=== PATIENT | female | born 1970 | race Caucasian/White ===

== ENCOUNTER 2018-11-06 13:44 | Emergency (ER) | payer SELFPAY ==
[2018-11-06 14:27] VITALS: BP 117/66
[2018-11-06] MEDS ORDERED: DIPHENHYDRAMINE HCL 50 MG/ML VIAL IV ONE (15:04)
[2018-11-06] MEDS ORDERED: KETOROLAC TROMETHAMINE INJ/PF 30 MG/1 ML SDV IV ONE (15:04)
[2018-11-06] MEDS ORDERED: METOCLOPRAMIDE HCL INJ/PF 10 MG/2 ML SDV IV ONE (15:04)
[2018-11-06] MEDS ORDERED: NORMAL SALINE 1000 ML 1,000 ML IV ONE (15:04)
--- NOTE | 2018-11-06 15:07 | ER Document Report ---
ED General - General Chief Complaint: Headache Stated Complaint: HEADACHE Time Seen by Provider: 11/06/18 14:59 - HPI Notes: Patient is a 48-year-old female that presents to the emergency department for chief complaint of headache. Patient reports headache for the last 3 days. She describes it as a tightness extending from the back of her neck up over bilaterally to her forehead. She endorses photophobia and phonophobia. She also states she is having black and white or eyes. She does have a history of headaches in the past and states this feels similar. The headache was gradual in onset and has been worsening over the last few days. She took 2 Aleve once yesterday with no improvement of her symptoms. She has not taken any other medication at home for her pain. She states she has not been eating or drinking well because of the headache. She denies any fevers, chills, neck pain, numbness and weakness. Past Medical History: Headaches Past Surgical History: Tubal ligation, cholecystectomy Social History: Daily tobacco. Denies drugs and alcohol Family History: Reviewed and noncontributory for presenting illness Allergies: Reviewed, see documented allergy list. REVIEW OF SYSTEMS: CONSTITUTIONAL : No fever No chills No diaphoresis No recent illness EENT: No vision changes No congestion No sore throat CARDIOVASCULAR: No chest pain No palpitations RESPIRATORY: No shortness of breath No cough No difficulty breathing GASTROINTESTINAL: No abdominal pain No nausea No vomiting No diarrhea GENITOURINARY: No dysuria No hematuria No difficulty urinating MUSCULOSKELETAL: No back pain No leg pain No arm pain SKIN: No rashes No lesions LYMPHATIC: No swollen, enlarged glands. NEUROLOGICAL: No lightheadedness headache No weakness No paresthesias PSYCHIATRIC: No anxiety No depression PHYSICAL EXAMINATION: Vital signs reviewed, nursing noted reviewed. GENERAL: Well-appearing, well-nourished and in no acute distress. HEAD: Atraumatic, normocephalic. EYES: Eyes appear normal, extraocular movements intact, sclera anicteric, conjunctiva are normal. ENT: nares patent, oropharynx clear without exudates. Moist mucous membranes. NECK: Normal range of motion, supple without lymphadenopathy LUNGS: Breath sounds clear to auscultation bilaterally and equal. No wheezes rales or rhonchi. HEART: Regular rate and rhythm without murmurs ABDOMEN: Soft, nontender, normoactive bowel sounds. No rebound, guarding, or rigidity. No masses appreciated. EXTREMITIES: Nontender, good range of motion, no pitting or edema. NEUROLOGICAL: No focal neurological deficits. Moves all extremities spontaneously Motor and sensory grossly intact on exam. PSYCH: Normal mood, normal affect. SKIN: Warm, Dry, normal turgor, no rashes or lesions noted on exposed skin - Related Data Allergies/Adverse Reactions: naproxen [From Aleve] Allergy (Verified 11/06/18 15:03) Past Medical History - Social History Smoking Status: Current Every Day Smoker Chew tobacco use (# tins/day): No Frequency of alcohol use: None Drug Abuse: None Family History: Reviewed & Not Pertinent Patient has suicidal ideation: No Patient has homicidal ideation: No Neurological Medical History: Reports: Hx Migraine Renal/ Medical History: Denies: Hx Peritoneal Dialysis Past Surgical History: Reports: Hx Cholecystectomy, Hx Orthopedic Surgery - l foot, Hx Tubal Ligation Physical Exam - Vital signs Vitals: Temp Pulse Resp BP Pulse Ox 97.7 F 63 16 117/66 98 11/06/18 14:25 11/06/18 14:25 11/06/18 14:25 11/06/18 14:25 11/06/18 14:25 Course - Re-evaluation Re-evalutation: 11/06/18 15:06 Vitals reviewed. Nursing notes reviewed. Patient has no focal neurologic deficits. She will be given IV hydration, Reglan, Benadryl and Toradol for her migraine type headache. She has had headaches like this in the past and it was gradual in onset. I do not suspect subarachnoid hemorrhage or aneurysm. She is afebrile with no meningismus. 11/06/18 16:54 Patient reevaluated. She states her headache has almost completely resolved. She denies any aura photophobia or phonophobia present. She will be discharged home in stable condition. She was counseled on return precautions and verbalized understanding. She will follow with her PCP in the next few days for reevaluation. - Vital Signs Vital signs: Temp Pulse Resp BP Pulse Ox 97.7 F 63 16 117/66 98 11/06/18 14:25 11/06/18 14:25 11/06/18 14:25 11/06/18 14:25 11/06/18 14:25 Discharge - Discharge Clinical Impression: Cephalgia Qualifiers: Headache type: unspecified Headache chronicity pattern: acute headache Intractability: not intractable Qualified Code(s): R51 - Headache Condition: Stable Disposition: HOME, SELF-CARE Instructions: Headache ([facility]) Additional Instructions: Please return to the emergency department if you have any worsening, or concern of your symptoms. Please return to the emergency department if you develop chest pain, difficulty breathing, severe abdominal pain, or ongoing vomiting. Please follow-up with your primary care physician in 2-3 days and any other recommended physicians. If prescribed, take all medications as directed. If you have any questions or concerns do not hesitate to return the emergency department for evaluation. Return to the emergency room for any increased pain, vision changes, numbness, weakness or fevers Referrals: [facility] [Provider Group] - Follow up in 3-5 days
== END 2018-11-06 17:07 | disposition home or self-care (01) ==
LOC: ER 13:44
DX: R51 Headache (principal); H53.149 Visual discomfort, unspecified; F17.200 Nicotine dependence, unspecified, uncomplicated; Z86.69 Personal history of other diseases of the nervous system and sense organs; Z88.8 Allergy status to other drugs, medicaments and biological substances
CPT/HCPCS: 99284; 96361; 96374; 96375; J1200; J1885; J2765; J7030